=== PATIENT | male | born 1970 | race Caucasian/White ===

== ENCOUNTER 2020-03-05 12:24 | Inpatient (IN) | payer OTHER, SELFPAY ==
[2020-03-05] VITALS (40 sets, daily range): BP systolic 115–128; BP diastolic 79–92; PULSE 57–89; RESP 12–20; TEMP 36.7–37.3; O2SAT 96–100; BMI 26.1
--- NOTE | ~2020-03-05 | MR_ITS ---
EXAMINATION: MR brain/brain stem wo/w con EXAM DATE: 03/06/2020 13:06 INDICATION: vertigo and visual changes. TECHNIQUE: Magnetic resonance imaging (MRI) of the brain/brain stem obtained without contrast. Sagit renae T1, axial diffusion, gradient echo (T2*), T1, T2, FLAIR sequences obtained. Patient was then inj ected with 19 cc intravenous Multihance contrast. Axial and coronal postcontrast T1 weighted sequence s obtained. Correlation is made to head CT from 03/05/2020. FINDINGS: There is punctate focus of restricted diffusion in the left tectal plate, a punctate acute midbrain infarction. No other areas of restricted diffusion. There is a small to moderate size old le ft cerebellar infarction. There is no acute hemorrhage seen on the T2*, a hemosiderin sensitive seque nce. No intraparenchymal brain mass. The ventricles are normal in size. There are no extra-axial co llections. Flow voids are seen in the cerebral arteries on the T2-weighted sequences consistent with their expected patency. The orbits are unremarkable. Soft tissue is unremarkable. There are no a reas of abnormal enhancement on the postcontrast images. IMPRESSION: 1. Punctate acute left midbrain infarction. 2. Small to moderate-sized old left cerebellar infarction. Reviewed, dictated and finalized at location A. ATIONAL INTERPRETER
--- NOTE | ~2020-03-05 | CT_ITS ---
EXAMINATION: CT brain wo con DATE: 03/05/2020 15:04 INDICATION: Headache. Dizziness. TECHNIQUE: Computed tomography (CT) of the head was performed without intravenous contrast. The mA wa s adjusted according to patient size. Iterative reconstruction technique was employed. The dose-lengt h product was 605.33 mGy-cm. COMPARISON: Head CT 01/27/2009 FINDINGS: There is an old infarct involving left superior cerebellum. There is no intracranial hemorr doris, acute infarction, or abnormal intracranial mass lesion. The ventricles are normal in size. Ther e is mild mucosal thickening in the paranasal sinuses. The orbits are normal. The mastoid air cells a re normal. IMPRESSION: 1. Old infarct involving left superior cerebellum. Reviewed, dictated and finalized at location A. GN EDITOR
--- NOTE | ~2020-03-05 | CT_ITS ---
EXAMINATION: CTA brain carotid DATE: 03/05/2020 17:02 INDICATION: Headache. Dizziness. TECHNIQUE: Computed tomographic angiography (CTA) of the head was performed with 100 mL Omnipaque-350 intravenous contrast. CTA of the neck was performed with intravenous contrast. Automated exposure co ntrol and iterative reconstruction technique were employed. The dose-length product was 1202.78 mGy-c m. Maximum intensity projection and volume rendered 3D-reconstructions were created by the [employer] st on a separate workstation. COMPARISON: Head CT 03/05/2020 FINDINGS: HEAD CTA: There is an old infarct involving left superior cerebellum. There is no intracranial hemorr doris, acute infarction, or abnormal intracranial mass lesion. The ventricles are normal in size. Ther e is mild mucosal thickening in the paranasal sinuses. The orbits are normal. The mastoid air cells a re normal. The vertebral arteries are codominant. There is no significant stenosis of basilar artery or the posterior cerebral arteries. There is no significant stenosis of the intracranial internal car otid arteries or anterior or middle cerebral arteries. Anterior communicating artery is normal. The p osterior communicating arteries are normal. NECK CTA: There are no pathologically enlarged lymph nodes. There is a 9 mm nodule in left thyroid lo be, likely not clinically significant. There is no significant stenosis of the vertebral arteries. Th ere is mild plaque at the carotid bifurcations. There is 0% stenosis of the proximal right internal carotid artery relative to normal distal artery lumen diameter (NASCET criteria). There is 0% stenosi s of the proximal left internal carotid artery relative to normal distal artery lumen diameter. There is moderate thoracic spondylosis. IMPRESSION: 1. Old infarct involving left superior cerebellum. 2. No aneurysm or significant intracranial arterial stenosis. 3. 0% stenosis of the proximal internal carotid arteries relative to normal distal artery lumen diame ters (NASCET criteria). Reviewed, dictated and finalized at location A. L GRINDER IMPRESSION: 1. Old infarct involving left superior cerebellum. 2. No aneurysm or significant intracranial arterial stenosis. 3. 0% stenosis of the proximal internal carotid arteries relative to normal dis renae artery lumen diameters (NASCET criteria).
--- NOTE | 2020-03-05 12:48 | ECG_ITS ---
Measurements Intervals [place] Rate: 70 P: 65 SD: 185 QRS: 30 QRSD: 90 T: 43 QT: 390 QTc: 423 Interpretive Statements SINUS RHYTHM INCOMPLETE RIGHT BUNDLE BRANCH BLOCK BASELINE ARTIFACT- I, III, AVR, AVL, AVF BORDERLINE ECG Electronically Signed On 03-05-2020 13:10:03 PLACEMENT COORDINATOR by Rob Rivers D.O.
[2020-03-05 13:00] LABS: Basophils Absolute Auto 0.1 K/mm3 (0.0-0.1); Basophils Percent Auto 0.5 % (0.2-1.2); Eosinophils Percent Auto 0.3 % (0-4.4); Hematocrit 44.2 % (42.0-52.0); Immature Granulocyte Absolute 0.03 K/mm3 (0.00-0.031); Immature Granulocyte Percent A 0.3 % (0-0.5); Lymphocytes Absolute Auto 1.22 K/mm3 (0.9-3.2); Lymphocytes Percent Auto 12.1 % (18.3-44.2); Mean Corpuscular HGB Conc 36.2 g/dl (32-36); Mean Corpuscular Hemoglobin 31.7 pg (26-34); Mean Corpuscular Volume 87.7 fl (80-100); Mean Platelet Volume 12.8 fl (7.4-10.4); Monocytes Absolute Auto 0.6 K/mm3 (0.1-0.6); Neutrophils Absolute Auto 8.1 K/mm3 (1.3-6.7); Neutrophils Percent Auto 80.8 % (45.5-73.1); Platelet Count Result 203 k/mm3 (150-375); Red Blood Count 5.04 M/mm3 (4.6-6.20); Red Cell Distribution Width 11.7 % (11.5-14.5); White Blood Count 10.1 K/mm3 (4.5-10.0)
[2020-03-05 13:08] LABS: Anion Gap 7 mmol/L (8-16); Blood Urea Nitrogen 18 mg/dL (9-20); Carbon Dioxide 25 mmol/L (22-30); Chloride 106 mmol/L (98-107); Estimated CRCL calculation 135 ml/min; Estimated Glomerular Filt Rate > 60; Glucose 103 mg/dL (75-110); Potassium 3.9 mmol/L (3.4-5.0); Sodium 138 mmol/L (137-145)
[2020-03-05] MEDS: ONDANSETRON INJ 4 MG/2 ML VIAL IV PUSH (14:51)
[2020-03-05] MEDS: diazePAM INJ (*CRX) 10 MG/2 ML SYRINGE 5 MG IV PUSH (14:51)
--- NOTE | 2020-03-05 16:27 | ED.GENADULT ---
HPI - General Adult General Chief complaint: Dizziness <Kevin Tapia PA-C - Last Filed: 03/05/20 16:49> Stated complaint: double vision, wont stop moving, dizzy <eKvin Tapia PA-C - Last Filed: 03/05/20 16:49> Time Seen by Provider: 03/05/20 13:51 <Kevin Tapia PA-C - Last Filed: 03/05/20 16:49> Source: patient <ALIDA Spencer Last Filed: 03/05/20 16:49> Mode of arrival: ambulatory <ALIDA Spencer Last Filed: 03/05/20 16:49> Limitations: no limitations <Kevin Tapia PA-C - Last Filed: 03/05/20 16:49> History of Present Illness HPI narrative: Patient presents with chief complaint of dizziness, photophobia, double vision and 2 episodes of vomiting that began between 3:57 PM last night after being around a doing some strenuous labor and getting into his truck to the home. Patient states while riding home he vomited out of the window twice but has not vomited since despite continuing to feel nauseous. Patient reports he had an episode of vertigo 10 years ago but since has not had any of these symptoms. He denies any falls or head injuries. He denies recently starting any new medications. Patient states that when he opens his eyes he is extremely sensitive to light and it causes him to feel as if he will vomit. He states he also feels like everything is moving slowly around him. Patient denies prior history of heart attacks or strokes. He states that he takes finasteride for prostate issues as well as a baby aspirin just in an attempt to be prophylactic his has suffered a stroke. He denies any chest pain, shortness of breath, fever, chills, cough or localized headache. Patient denies any loss of range of motion or sensation to his upper or lower extremities, facial droop, speech issues, or issues ambulating. <Kevin Tapia PA-C - Last Filed: 03/05/20 16:49> Related Data Allergies/adverse reactions: Allergies Allergy/AdvReac Type Severity Reaction Status Date / Time No Known Allergies Allergy Verified 03/05/20 12:45 <Kevin Tapia PA-C - Last Filed: 03/05/20 16:49> Review of Systems Review of Systems: Narrative: CONSTITUTIONAL: Denies fever, chills, or sweats. EYES: Reports photophobia and visual changes denies redness, or discharge. ENT: Denies rhinorrhea, congestion, sore throat, or otalgia. CARDIOVASCULAR: Denies chest pain, palpitations, or edema. RESPIRATORY: Denies cough or dyspnea. GASTROINTESTINAL: Reports nausea and 2 episodes of vomiting denies abdominal pain or diarrhea. GENITOURINARY: Denies dysuria or hematuria. SKIN: Denies rash or itching. MUSCULOSKELETAL: Denies back pain, myalgia, or joint pain NEUROLOGIC: Reports dizziness PSYCHIATRIC: Denies anxiety or depression. <Kevin Tapia PA-C - Last Filed: 03/05/20 16:49> Exam Narrative: Exam Narrative: GENERAL: Well-appearing, well-nourished. HEAD: Normocephalic, atraumatic. EYES: PERRLA and EOMI. Left eye tracking slightly slower than right but nystagmus not appreciated. Patient refuses to do cerebellar function test due to being so photophobic. NECK: Supple. No adenopathy or masses. No vertebral tenderness or loss of ROM. CHEST: Clear to auscultation. No respiratory distress. No wheezes rales or rhonchi HEART: Regular rate and rhythm. Normal peripheral pulses. ABDOMEN: Patient not actively vomiting present. soft, nontender, nondistended, normal active bowel sounds. No bruises noted. EXTREMITIES: No acute changes in ROM. No edema. SKIN: Warm, dry, no rash. NEURO: No focal deficits. Alert and oriented x3. Patient declines gait testing do to dizziness and photophobia. PSYCH: Normal mood and affect. <Kevin Tapia PA-C - Last Filed: 03/05/20 16:49> Course LOG SCALER/PA Physician Supervision For this patient encounter, I reviewed the LOG SCALER or PA documentation, treatment plan, and medical decision making; and I had [id number] time with this patient. <Julienne Moser MD -
--- NOTE | 2020-03-05 19:00 | ADMGEN ---
This patient, Meng Bailey, was admitted to [facility]. Patient/family oriented to hospital policies and general routines including ID bracelet, bed and alarms, visiting hours, pain management, procedures, bathroom and other care routines, personal items, smoking policy, room service/diet, and visiting hours. Information on how to activate the Rapid Response Team has been discussed. Patient/Family are encouraged to report perceived risks to care and to ask questions if they do not understand what they are told or what they should do.
--- NOTE | 2020-03-05 22:00 | PM.IMHP ---
H&P: HPI History of Present Illness Date/Time: 03/06/20 22:00 Chief complaint: Dizziness, visual disturbances, nausea. Narrative: Meng Bailey is a pleasant 49-year-old male with enlarged prostate who presented to the emergency department earlier today from home with complaints of dizziness, visual disturbances, and nausea. Yesterday he spent the day cleaning out his mother's old storage unit and sometime later in the afternoon he had a sudden onset of vertigo and visual disturbances associated with nausea. Shortly thereafter he developed a headache behind his eyes with mild photophobia. He further qualifies his dizziness more so as vertigo, and reports that movement seems to make it worse. He also describes binocular diplopia which seems to be worse when looking towards the right. He has no visual deficits when looking out of one eye or the other. Brain CT done on arrival to the emergency department showed old infarct involving the left superior cerebellum, and with further questioning he does mention that approximately 10 years ago he had symptoms of left-sided weakness and slurred speech which was apparently attributed to an atypical migraine. He is otherwise healthy and has no history of hypertension, dyslipidemia, cardiac dysrhythmia, or hypercoagulable disorder. He does not take hormones and has no COVID symptoms. He denies aural fullness, tinnitus, palpitations, and history of cardiac dysrhythmia. No focal weakness, paresthesias, dysphagia, or dysarthria. Of note, he does take a baby aspirin daily as a preventative. Review of Systems Review of Systems: Narrative: Twelve systems were reviewed with pertinent positives and negatives as per HPI. No fever, chills, or sweats. No recent cold or flu symptoms. He denies chest pain, pleuritic pain, and shortness of breath. No cough. No palpitations or feelings of irregular heartbeat. Except as documented, all other systems were reviewed and are negative. [facility]LY [facility] Past Medical History Medical History (Updated 03/06/20 @ 00:12 by Phuong Lemus PA-C) Enlarged prostate Old cerebrovascular accident without late effect Brain CT performed on 03/05/2020 showed an old infarct involving the left superior cerebellum. Surgical History Surgical History (Updated 03/06/20 @ 00:08 by Phuong Lemus PA-C) History of removal of cyst History of vasectomy Family History Family History (Updated 03/06/20 @ 00:09 by Phuong Lemus PA-C) Mother Liver transplant recipient Social History Social History (Updated 03/06/20 @ 00:10 by Phuong Lemus PA-C) Social History: Surrogate decision maker: Sowmya Bailey, . Code status: Full code. Smoking status: Never smoker Alcohol intake: never Alcohol use details: Drinks perhaps 3 alcoholic beverages a year. Substance use: never Substance use type: does not use Living arrangements: with family Additional living arrangements comments: Patient resides in [place] with his . He has no biological children. 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 Spiritual care concerns: No Meds Home Medications and Allergies Home Medications Medication Instructions Recorded Confirmed Type finasteride 5 mg PO DAILY 03/05/20 03/05/20 History Allergies Allergy/AdvReac Type Severity Reaction Status Date / Time No Known Allergies Allergy Verified 03/05/20 12:45 Vital Signs Vital Signs - 24 hr 03/05/20 12:40 03/05/20 13:43 03/05/20 13:45 Temperature 98.5 F Pulse Rate 82 72 67 Respiratory Rate 18 16 15 Blood Pressure 123/86 Pulse Oximetry 100 97 98 03/05/20 14:00 03/05/20 14:01 03/05/20 14:15 Temperature Pulse Rate 63 63 70 Respiratory Rate 12 12 15 Blood Pressure 125/86 Pulse Oximetry 99 98 100 03/05/20 14:16 03/05/20 14:30 03/05/20 14:31 Temperature Pulse Rate 64 64 62 Res
[2020-03-05] MEDS: ACETAMINOPHEN 325 MG TABLET 650 MG PO (22:39)
[2020-03-05] MEDS: diazePAM (*CRX) 5 MG TABLET PO (22:40)
[2020-03-06] VITALS (11 sets, daily range): BP systolic 102–136; BP diastolic 71–91; PULSE 61–82; RESP 15–20; TEMP 36.7–37.1; O2SAT 98–100
--- NOTE | 2020-03-06 | ECHO_ITS ---
Patient Info Name: Meng Bailey Age: 49 years : 1970 Gender: Male Ht: 76 in Wt: 214 lbs BSA: 2.29 m2 HR: 70 bpm BP: 120 / 83 mmHg Heart Rhythm: Sinus Rhythm Technical Quality: Fair Exam Date: 03/06/2020 11:33 AM Exam Location: [facility] Patient Status: Inpatient Admit Date: 03/05/2020 Staff Ordering Physician: Phuong Lemus PA-C Lav Crewman: Matthew Rios RDCS Attending Provider: Jerome Jin MD Referring Physician: Mariah TATE; Exam Type: CA echo doppler w bubble study Study Info Indications 386.2 - Vertigo of Central Origin Complete two-dimensional, color flow and Doppler transthoracic echocardiogram is performed with agitated saline. Contrast/Agitated Saline Contrast/Ag. Saline: Agitated Saline Amount: 18.00 ml Administered By: Jamaal Dumont RN Existing IV Access: Yes History/Risk Factors Vertigo w/ blurred and double vision. Summary 1. Left ventricular chamber dimension is normal. 2. Left ventricular systolic function is normal, estimated at 60-65%. 3. There is mildly increased left ventricular wall thickness. 4. The left ventricular diastolic function is normal. 5. E/e' 5 is not elevated. Left Ventricle E/e' 5 is not elevated. Left ventricular chamber dimension is normal. Left ventricular systolic function is normal, estimated at 60-65%. There is mildly increased left ventricular wall thickness. The left ventricular diastolic function is normal. Right Ventricle Right ventricular chamber dimension is normal. Right ventricular systolic function is normal. Left Atria Left atrial chamber dimension is normal. Right Atria Right atrial chamber dimension is normal. Atrial Septum Agitated saline injection opacified right sided cardiac chambers with and without valsalva maneuver without any shunt to left sided cardiac chambers. Intact interatrial septum visualized by agitated saline imaging. Aortic Valve The aortic valve is probable trileaflet. There is no aortic valve stenosis. There is no aortic valve regurgitation. Pulmonic Valve There is no pulmonic regurgitation. Mitral Valve There is no mitral valve stenosis. There is no mitral valve regurgitation. Tricuspid Valve There is no tricuspid valve regurgitation. Pericardium/Pleural There is no pericardial effusion. Inferior Vena Cava Normal inferior vena cava with >50% collapse upon inspiration consistent with normal right atrial pressure, 5 mmHg. Aorta The aortic root size at the sinus of Valsalva is normal. Left Ventricular Outflow Tract Name Value Normal LVOT 2D LVOT Diameter 2.0 cm LVOT Doppler LVOT Peak Gradient 4 mmHg LVOT Mean Gradient 2 mmHg LVOT VTI 18 cm LVOT VTI/AV VTI Ratio 0.8 LVOT Stroke Volume 57 ml LVOT CO 4.0 l/min LVOT CI 1.7 l/min/m2 Mitral Valve
[2020-03-06 05:46] LABS: Alanine Aminotransferase 34 U/L (4-50); Alkaline Phosphatase 88 U/L (38-126); Aspartate Amino Transferase 36 U/L (17-59); Bilirubin,Total 1.5 mg/dL (0.2-1.3); Cholesterol 152 mg/dL (0-200); HDL Direct 38 mg/dL; Triglycerides 81 mg/dL (<150)
[2020-03-06 05:57] LABS: LDL Cholesterol Direct 89 mg/dL
--- NOTE | 2020-03-06 11:39 | WPDNEURCNPN ---
Consult date: 03/06/20 Time Seen: 11:30 HPI: Meng Bailey is a 49 year old male49 years old right-handed male has been admitted to [facility] through the emergency room with the complaints of dizziness with visual difficulties and nausea day before admission to the emergency room he spent the time cleaning out his mother's old storage unit and sometime later on he developed vertigo and visual difficulties with nausea and retro-orbital pain and headaches along with the mild photophobia. movement makes the vertigo severe and worse in addition he developed binocular diplopia, worse when looking to the right side. initial CT scan of the brain in the emergency room was not normal except old infarct involving the left superior cerebellum which happened about 10 years ago at that time he had the left-sided weakness slurred speech as well but it was attributed to atypical migraine. there is no history of COVID or any other symptomatology. Patient does have a history of enlarged prostate, is not a smoker drinks perhaps 3 drinks a yea. routine lab is normal except the total bilirubin being 1.5, CT revealing the old infarcts involving the left superior cerebellum the CTA did not document any kind of moderate or large vessel disease at this stage is receiving the diazepam with diagnosis of labyrinth iron dysfunction Review of Systems Review of Systems: All systems reviewed & are unremarkable except as noted in HPI and below PMFSH Past Medical History Medical History (Updated 03/06/20 @ 00:12 by Phuong Lemus PA-C) Enlarged prostate Old cerebrovascular accident without late effect Brain CT performed on 03/05/2020 showed an old infarct involving the left superior cerebellum. Surgical History Surgical History (Updated 03/06/20 @ 00:08 by Phuong Lemus PA-C) History of removal of cyst History of vasectomy Family History Family History Mother Liver transplant recipient Social History Social History Social History: Surrogate decision maker: Sowmya Bailey, . Code status: Full code. Smoking status: Never smoker Alcohol intake: never Alcohol use details: Drinks perhaps 3 alcoholic beverages a year. Substance use: never Substance use type: does not use Living arrangements: with family Additional living arrangements comments: Patient resides in [place] with his . He has no biological children. 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. Spiritual care concerns: No Meds Home Medications and Allergies Home Medications Medication Instructions Recorded Confirmed Type finasteride 5 mg PO DAILY 03/05/20 03/05/20 History Allergies Allergy/AdvReac Type Severity Reaction Status Date / Time No Known Allergies Allergy Verified 03/05/20 12:45 Vital Signs Vital Signs - 24 hr 03/05/20 12:40 03/05/20 13:43 03/05/20 13:45 Temperature 36.9 C Pulse Rate 82 72 67 Respiratory Rate 18 16 15 Blood Pressure 123/86 Pulse Oximetry 100 97 98 03/05/20 14:00 03/05/20 14:01 03/05/20 14:15 Temperature Pulse Rate 63 63 70 Respiratory Rate 12 12 15 Blood Pressure 125/86 Pulse Oximetry 99 98 100 03/05/20 14:16 03/05/20 14:30 03/05/20 14:31 Temperature Pulse Rate 64 64 62 Respiratory Rate 13 16 16 Blood Pressure 126/86 123/82 Pulse Oximetry 99 100 99 03/05/20 14:33 03/05/20 14:34 03/05/20 14:35 Temperature Pulse Rate 64 83 71 Respiratory Rate 16 Blood Pressure 124/84 121/85 124/84 Pulse Oximetry 100 03/05/20 14:36 03/05/20 14:37 03/05/20 14:39 Temperature Pulse Rate 82 72 89 Respiratory Rate 16 20 Blood Pressure 115/92 H 121/85 115/92 H Pulse Oximetry 100 100 03/05/20 14:40 03/05/20 14:45 03/05/20 14:46 Temperature Pulse Rate 66 60 61 Resp
--- NOTE | 2020-03-06 16:21 | PM.IMPN ---
Progress Note: A&P Assessment and Plan (1) Vertigo: Code(s): R42 - Dizziness and giddiness Status: Acute Assessment and Plan: possible vertigo pt awaiting MRI and CT head and echo for stroke work up. neurology consulted, will order thrombophilia panel. will order ASA and statin (2) Visual changes: Code(s): H53.9 - Unspecified visual disturbance Status: Acute Assessment and Plan: blurred vision both eyes, neurochecks to continue overnight. (3) Enlarged prostate: Code(s): N40.0 - Benign prostatic hyperplasia without lower urinary tract symptoms Status: Inactive Assessment and Plan: on medications for BPH (4) Old cerebrovascular accident without late effect: Code(s): Z86.73 - Personal history of transient ischemic attack (TIA), and cerebral infarction without residual deficits Status: Acute Assessment and Plan: 10 years ago. Subjective Date/time seen: 03/06/20 16:21 Interval history: 49-year-old male with enlarged prostate who presented to the emergency department earlier today from home with complaints of dizziness, visual disturbances, and nausea. very fit healthy man, complains of blurred vision dizziness and nausea. Ct head shows old infarct. Mri head shows acute infarct and old infarct. Talked to she has many questions, will order thrombophilia screen. Review of Systems Review of Systems: ROS unobtainable: Yes other (blurred vision ) Exam Narrative: Exam Narrative: General: Well-developed male HEENT: Normocephalic. Neck: Supple. Respiratory: Lungs are clear to auscultation bilaterally. Cardiovascular: Regular rate and rhythm with S1-S2. No murmur, rub, or gallop. Gastrointestinal: Abdomen is soft, nontender, and nondistended with positive bowel sounds. Skin: Warm and dry. Extremities: No cyanosis, clubbing, or edema. Neurological: Alert and oriented x4. Cranial nerves 2-12 are grossly intact. Speech is clear. No facial asymmetry. No pronator drift. Strength 5/5 in upper and lower extremities. vision blurred. Psychiatric: Pleasant and cooperative with normal mood and affect. Judgment and insight intact. Objective Data Vital Signs Vital Signs: Vital Signs - 24 hr 03/05/20 16:23 03/05/20 16:53 03/05/20 17:00 Temperature Pulse Rate 62 64 64 Respiratory Rate 12 12 14 Blood Pressure Pulse Oximetry 99 98 98 03/05/20 17:01 03/05/20 17:15 03/05/20 17:16 Temperature Pulse Rate 60 64 62 Respiratory Rate 12 14 14 Blood Pressure 120/81 118/80 Pulse Oximetry 98 97 97 03/05/20 17:31 03/05/20 17:55 03/05/20 18:00 Temperature Pulse Rate 64 64 65 Respiratory Rate 12 12 14 Blood Pressure 126/89 Pulse Oximetry 97 98 99 03/05/20 18:01 03/05/20 18:15 03/05/20 18:16 Temperature Pulse Rate 67 62 64 Respiratory Rate 20 20 20 Blood Pressure 121/84 126/88 Pulse Oximetry 99 97 96 03/05/20 18:17 03/05/20 18:35 03/05/20 18:47 Temperature Pulse Rate 64 80 63 Respiratory Rate 12 14 18 Blood Pressure 122/89 Pulse Oximetry 97 99 98 03/05/20 19:00 03/05/20 20:00 03/05/20 22:00 Temperature 37.3 C 36.7 C Pulse Rate 62 62 73 Respiratory Rate 16 16 16 Blood Pressure 128/79 127/85 Pulse Oximetry 100 100 100 03/06/20 00:00 03/06/20 04:00 03/06/20 05:15 Temperature Pulse Rate 63 61 67 Respiratory Rate Blood Pressure 120/83 Pulse Oximetry 100 03/06/20 05:20 03/06/20 05:22 03/06/20 06:00 Temperature 36.7 C Pulse Rate 82 72 67 Respiratory Rate 18 Blood Pressure 118/91 H 102/91 H 120/83 Pulse Oximetry 100 100 100 03/06/20 08:00 03/06/20 12:00 Temperature 36.8 C 36.7 C Pulse Rate 72 70 Respiratory Rate 15 15 Blood Pressure 113/71 126/84 Pulse Oximetry 98 100 Intake/Output Intake/Output: Intake & Output 03/03/20 03/04/20 03/05/20 03/06/20 23:59 23:59 23:59 23:59 Intake Total 480 Balance 480 Meds/Results Medications: Active Medi
--- NOTE | 2020-03-06 17:30 | PC.NURSE ---
Pt report received from Anali Blanc RN. Pt resting in bed with lights off. Does not complain of pain at this time. VSS. Will continue to monitor and address needs as they arise.
[2020-03-07] VITALS: PULSE 56
[2020-03-07 04:00] VITALS: PULSE 68
[2020-03-07 06:00] VITALS: BP 120/87; PULSE 64; RESP 20; TEMP 36.5; O2SAT 100
[2020-03-07 08:00] VITALS: BP 104/65; PULSE 88; RESP 22; TEMP 35.7; O2SAT 99
[2020-03-07] MEDS: FINASTERIDE 5 MG TABLET PO (10:15)
[2020-03-07] MEDS: ASPIRIN 325 MG TABLET PO (10:15)
[2020-03-07] MEDS: ATORVASTATIN 10 MG TABLET PO (10:16)
--- NOTE | 2020-03-07 13:55 | PM.DS ---
DS: Admitting Diagnosis Admitting Diagnosis Admitting Diagnosis: R/O acute infarct-dizziness and photophobia HOSPITAL COURSE: 49-year-old male with enlarged prostate who presented to the emergency department earlier today from home with complaints of dizziness, visual disturbances, and nausea. very fit healthy man, complains of blurred vision dizziness and nausea. Ct head shows old infarct. Mri head shows acute infarct and old infarct. Talked to she has many questions, will order thrombophilia screen. Pt seen by neurology. Watched in hospital. Main deficit is blurred vision. Discharged 03/07/2020. DS: Discharge Diagnosis Discharge Diagnosis (1) Vertigo: Code(s): R42 - Dizziness and giddiness Status: Acute Assessment and Plan: Pt awaiting MRI and CT head and echo for stroke work up. Neurology consulted, thrombophilia panel ordered. ASA and statin ordered. (2) Visual changes: Code(s): H53.9 - Unspecified visual disturbance Status: Acute Assessment and Plan: Blurred vision both eyes, neurochecks to continue overnight. (3) Enlarged prostate: Code(s): N40.0 - Benign prostatic hyperplasia without lower urinary tract symptoms Status: Inactive Assessment and Plan: on medications for BPH (4) Old cerebrovascular accident without late effect: Code(s): Z86.73 - Personal history of transient ischemic attack (TIA), and cerebral infarction without residual deficits Status: Acute Assessment and Plan: 10 years ago. DS: Summary Time Spent with Patient Time attestation: Total time spent providing and/or coordinating discharge services:40 minutes on day of dischrage Exam Narrative: Exam Narrative: General: Well-developed male HEENT: Normocephalic. Neck: Supple. Respiratory: Lungs are clear to auscultation bilaterally. Cardiovascular: Regular rate and rhythm with S1-S2. No murmur, rub, or gallop. Gastrointestinal: Abdomen is soft, nontender, and nondistended with positive bowel sounds. Skin: Warm and dry. Extremities: No cyanosis, clubbing, or edema. Neurological: Alert and oriented x4. Cranial nerves 2-12 are grossly intact. Speech is clear. No facial asymmetry. Strength 5/5 in upper and lower extremities. Vision blurred. no nystagmus seen. Psychiatric: Pleasant and cooperative with normal mood and affect. Judgment and insight intact. DS: Data Data Completed and Pending Labs on day of discharge: Labs from last 24 hours 03/06/20 19:13 Protein C Activity Pending Free Protein S Antigen Pending Antithrombin III Activ Pending Factor V Leiden Mutat Pending Factor V [place] HR2 Pending Thrombosis Interpret Pending Prothrombin [id number] Mut Pending Discharge Plan Discharge Attending physician on discharge: Alaina Rudd Consulting providers: Charles Wall ; Eliseo Rock ; Kevin Tapia ; Sergio Carr ; Phuong Lemus ; Rob Rivers ; Nolan Conti V. Discharging Clinician: Alaina Rudd Anticipated Discharge Date/Time: 03/07/20 13:51 Patient Disposition: Home, Self-Care Activity: as tolerated Diet: heart healthy Discharge Instructions: Follow up with OCCUPATIONAL ANALYST in 1-2 weeks time Follow up with DR Rock neurology in 2 weeks time Patching eye to rest eye, alter the patch Off work for 2 weeks No driving for 1 month No strenuous exercise for 2 weeks Patient Instructions: Antibiotic Form, Ischemic Stroke (DC) Stand Alone Forms: General Discharge Information Follow-up/Referrals: Eliseo Rock MD [Physician] - (in 2 weeks time for thrombophilia screen results and eye check ) Charles Wall DO [Physician] - Discharge Medications: New aspirin 325 mg Tablet 325 mg PO DAILY@0800 Qty: 90 RF: 0 atorvastatin 10 mg Tablet 10 mg PO DAILY Qty: 90 RF: 0 Continued finasteride 5 mg tablet 5 mg PO DAILY RF: 0 Date of admission: 03/06/20 13:58 Primary
--- NOTE | 2020-03-07 15:36 | WPDNEUROPN ---
Progress Note: A&P Assessment and Plan (1) Old cerebrovascular accident without late effect: Code(s): Z86.73 - Personal history of transient ischemic attack (TIA), and cerebral infarction without residual deficits Status: Acute (2) Vertigo: Code(s): R42 - Dizziness and giddiness Status: Acute (3) Dizziness: Code(s): R42 - Dizziness and giddiness Status: Acute (4) Visual changes: Code(s): H53.9 - Unspecified visual disturbance Status: Acute Additional Plan at this stage patient is stable. He wants to go home. All his questions were answered he will follow in the office for all these results he will not be driving he has specific question how long to continue the aspirin on this dosage was advised to continue at least for 1 month and on subsequent visit we can adjust no large vessels are involved Review of Systems Review of Systems: All systems reviewed & are unremarkable except as noted in HPI and below Exam Narrative: Exam Narrative: which revealed him to be awake alert and cooperative keeping his eyes closed because of the blurriness of the vision which was definitely more obvious to him when he open his left eye and kept the right eye close fzikue-ek-cbes-to-finger intact no drift of 1 or other upper extremity against gravity with eyes closed motor examination symmetrical so as the deep tendon reflexes and the plantar responses downgoing there was no evidence of cerebellar dysfunction gross at this particular time Objective Data Vital Signs Vital Signs: Vital Signs - 24 hr 03/06/20 16:00 03/06/20 20:00 03/06/20 22:00 Temperature 37.1 C 37.0 C Pulse Rate 63 67 69 Respiratory Rate 16 20 16 Blood Pressure 136/85 114/78 Pulse Oximetry 100 100 99 03/07/20 00:00 03/07/20 04:00 03/07/20 06:00 Temperature 36.5 C Pulse Rate 56 L 68 64 Respiratory Rate 20 Blood Pressure 120/87 Pulse Oximetry 100 03/07/20 08:00 Temperature 35.7 C L Pulse Rate 88 Respiratory Rate 22 H Blood Pressure 104/65 Pulse Oximetry 99 Intake/Output Intake/Output: Intake & Output 03/04/20 03/05/20 03/06/20 03/07/20 23:59 23:59 23:59 23:59 Intake Total 720 Balance 720 Meds/Results Medications: Active Medications Generic Name Dose Route Start Last Admin Trade Name Freq PRN Reason Stop Dose Admin Acetaminophen 650 mg 03/05/20 22:13 03/05/20 22:39 Acetaminophen 325 Mg Tablet PO 650 mg Q6H PRN Administration Mild Pain (1-3) or Fever Aspirin 325 mg 03/07/20 08:00 03/07/20 10:15 Aspirin 325 Mg Tablet PO 325 mg DAILY@0800 JD Administration Atorvastatin Calcium 10 mg 03/07/20 09:00 03/07/20 10:16 Atorvastatin 10 Mg Tablet PO 10 mg DAILY JD Administration Finasteride 5 mg 03/07/20 09:00 03/07/20 10:15 Finasteride 5 Mg Tablet PO 5 mg DAILY JD Administration Ondansetron HCl 4 mg 03/05/20 22:13 Ondansetron Inj 4 Mg/2 Ml Vial IV PUSH Q6H PRN Nausea And Vomiting Radiology Results: ITS Impressions Head CT 03/05/20 15:09 IMPRESSION: 1. Old infarct involving left superior cerebellum. Head/Neck CTA 03/05/20 17:03 IMPRESSION: 1. Old infarct involving left superior cerebellum. 2. No aneurysm or significant intracranial arterial stenosis. 3. 0% stenosis of the proximal internal carotid arteries relative to normal distal artery lumen diameters (NASCET criteria). Brain MRI 03/06/20 13:16 IMPRESSION: 1. Punctate acute left midbrain infarction. 2. Small to moderate-sized old left cerebellar infarction. Quality VTE Prophylaxis VTE prophylaxis: mechanical ordered
[2020-03-20 14:46] LABS: Antithrombin III Activity 81 % normal (80-135); Protein S Antigen, Free 67 % normal (57-171)
== END 2020-03-07 16:12 | disposition home or self-care (01) | DRG 66 ==
LOC: ANHED 16:49 → ANHCPC 18:33
PROVIDERS: Physician Assistant; Admitting Provider Internal Medicine; Emergency Provider Emergency Medicine; Visit Provider Family Medicine
DX: I63.9 Cerebral infarction, unspecified (principal); H53.8 Other visual disturbances; R42 Dizziness and giddiness; R11.0 Nausea; N40.0 Benign prostatic hyperplasia without lower urinary tract symptoms; Z79.899 Other long term (current) drug therapy; Z86.73 Personal history of transient ischemic attack (TIA), and cerebral infarction without residual deficits
CPT/HCPCS: 36415; 70450; 70496; 70498; 70553; 80048; 80061; 80076; 81240; 81241; 85025; 85301; 85303; 85306; 93005; 93306; 96374; 96375; 99285; A9270; A9577; G0378; J2405; J3360; Q9967

== ENCOUNTER 2020-08-15 08:19 | Outpatient (CLI) | payer OTHER, SELFPAY ==
--- NOTE | ~2020-08-15 | XR_ITS ---
EXAMINATION: XR UGI w barium swallow DATE: 08/15/2020 09:20 INDICATION: One month of epigastric pain TECHNIQUE: The patient drank thick barium, gas-producing crystals, and thin barium. Fluoroscopic spot radiographs of the hypopharynx, esophagus, stomach and proximal small bowel were obtained. Fluorosco py exposure time was 1.8 minutes. Total DAP was 13.241 mGycm^2 COMPARISON: None. FINDINGS: The pharynx is symmetric and without evidence of mass lesion or mucosal irregularity. The esophagus i s normal without mass or stricture. Esophageal motility is normal. There is no hiatal hernia. There w as no gastroesophageal reflux with provocative maneuvers. The stomach and proximal small bowel are no rmal. IMPRESSION: 1. Normal esophagram and upper GI study. Reviewed, dictated and finalized at location A.
== END 2020-08-15 08:20 | disposition home or self-care (01) ==
PROVIDERS: PCP Internal Medicine; Visit Provider Internal Medicine
DX: R10.13 Epigastric pain (principal)
CPT/HCPCS: 74240

== ENCOUNTER 2020-11-01 14:00 | Outpatient (CLI) | payer OTHER, SELFPAY ==
--- NOTE | ~2020-11-01 | XR_ITS ---
XR hip LT min 2V DATE: 11/01/2020 14:21 INDICATION: Left groin pain. No injury. TECHNIQUE: AP and lateral views COMPARISON: None FINDINGS: There is moderate joint space narrowing consistent with left hip osteoarthritis. There are some benign lucencies of the lateral femoral neck with thin sclerotic margins, likely degenerative cy sts. No fracture or dislocation, avascular necrosis or any suspicious bone destruction is evident. The sacroiliac joints and symphysis appear normally aligned. IMPRESSION: Left hip osteoarthritis Reviewed, dictated and finalized at location B. IMPRESSION: Left hip osteoarthritis
== END 2020-11-01 14:01 | disposition home or self-care (01) ==
LOC: ANHIMG 14:02
PROVIDERS: PCP Internal Medicine; Visit Provider Internal Medicine
DX: M16.12 Unilateral primary osteoarthritis, left hip (principal)
CPT/HCPCS: 73502

== ENCOUNTER 2020-11-29 15:01 | Outpatient (CLI) | payer OTHER, SELFPAY ==
--- NOTE | ~2020-11-29 | MR_ITS ---
EXAMINATION: MR hip LT wo con DATE: 11/29/2020 16:01 INDICATION: Left hip pain TECHNIQUE: Magnetic resonance imaging (MRI) of the left hip was performed without intravenous contra st. Sequences included full-field axial PD-weighted FS FSE and T1-weighted FSE, coronal of the pelvis with PD-weighted FS FSE, small field of view of the left hip with axial PD-weighted FS FSE, sagitta l PD-weighted FS FSE and coronal PD weighted FS FSE. Additional radial T1-weighted FGR oriented ortho gonal to the acetabular rim were obtained for evaluation of the labrum. COMPARISON: None FINDINGS: Bones/labrum/cartilage: Alignment is normal. No fracture, avascular necrosis or pathologic marrow replacing process. Mild de creased anterosuperior left femoral head neck offset with subcortical cystic changes at the femoral h ead neck junction which can be seen with femoral acetabular impingement. There is mild degenerative t earing of the posterior superior left acetabular labrum with small shallow cleft at the chondral labr al junction at the 12:00-12:30 position. Mild partial-thickness chondral ulceration along the anteros uperior rim of the left acetabulum. Additional partial thickness cartilage loss at the posterior aspe ct of the left femoral head and acetabulum. No degenerative subchondral changes. Severe spondylosis a t the lumbosacral junction. Fluid: Symmetric physiologic amount of fluid within both hip joints. Soft tissues: Normal and symmetric muscle bulk and signal in the pelvis and visualized proximal thighs. Mild tendin opathy with very small partial tear at the left ischial tuberosity origin of the common tendon of the left biceps femoris and semitendinosus tendon. The proximal right hamstring tendons are normal. The iliopsoas and gluteal tendons are normal. Limited evaluation of visceral organs of the pelvis is unre markable. No pathologically enlarged pelvic/inguinal lymphadenopathy. IMPRESSION: 1. Mild left hip osteoarthritis with superolateral posterolateral labral tear/degeneration. 2. Decreased left femoral head neck offset with subcortical cystic change at the anterosuperior femor al head neck junction which could be seen with cam-type femoral acetabular impingement. 3. Mild tendinopathy of the proximal left hamstring tendons with very small partial thickness tear at the origin of the common tendon of the left biceps femoris and semitendinosus tendon. Reviewed, dictated and finalized at location B. IMPRESSION: 1. Mild left hip osteoarthritis with superolateral posterolateral labral tear/d egeneration. 2. Decreased left femoral head neck offset with subcortical cystic change at th e anterosuperior femoral head neck junction which could be seen with cam-type f emoral acetabular impingement. 3. Mild tendinopathy of the proximal left hamstring tendons with very small par tial thickness tear at the origin of the common tendon of the left biceps femor is and semitendinosus tendon.
== END 2020-11-29 15:02 | disposition home or self-care (01) ==
LOC: ANHIMG 15:02
PROVIDERS: PCP Internal Medicine; Visit Provider Internal Medicine
DX: M16.12 Unilateral primary osteoarthritis, left hip (principal)
CPT/HCPCS: 73721

== ENCOUNTER → 2021-08-29 11:32 | Outpatient (CLI) | payer OTHER, SELFPAY ==
--- NOTE | ~2021-08-29 | XR_ITS ---
XR_CERV2-3V_CR DATE: 08/29/2021 12:00 INDICATION: Neck pain TECHNIQUE: AP, open-mouth, lateral views COMPARISON: None FINDINGS: C1 and C2 are normally aligned and the odontoid process is intact. No fracture or dislocation or locked facet or prevertebral soft tissue swelling. There is mildly severe degenerative disease at C5-6 and moderate degenerative disc disease at C6-7. T here is uncovertebral joint spurring at C5-6 and C6-7. There is levoscoliosis of the upper thoracic spine with compensatory dextroscoliosis of the cervical spine. IMPRESSION: Cervical spondylosis Reviewed, dictated and finalized at Location A. Reviewed, dictated and finalized at location A. IMPRESSION: Cervical spondylosis
== END ==
PROVIDERS: PCP Internal Medicine; Visit Provider Nurse Practitioner
DX: M47.812 Spondylosis without myelopathy or radiculopathy, cervical region (principal)
CPT/HCPCS: 72040

== ENCOUNTER 2021-11-26 12:16 | Day surgery (SDC) | payer OTHER, SELFPAY ==
[2021-11-11 08:01] VITALS: BMI 26.8
--- NOTE | 2021-11-25 14:08 | WPDANESEPPF ---
Anes - Initial Pre Proc Eval Procedure: Operation Date: 11/26/21 13:30 Proposed Procedures p Screening Colonoscopy - Matthew De León MD Date/Time: 11/25/21 14:08 Surgeon: Matthew De León MD Pre Op Diagnosis: neoplasm screening Patient Data Age: 51 Gender: M Height: 1.93 m Weight: 100 kg Allergies Allergy/AdvReac Type Severity Reaction Status Date / Time No Known Allergies Allergy Verified 08/29/21 10:53 Home Medications Medication Instructions Recorded Confirmed Type finasteride 5 mg tablet 5 mg PO DAILY 03/05/20 08/15/21 History chlorzoxazone 500 mg tablet 500 mg PO TID PRN muscle spasm #90 08/15/21 08/15/21 Rx tabs sodium sul 1.479 gram-potas ch See Rx Instructions PO PER PKG DIR 09/09/21 Rx 0.188 gram-magnes sul 0.225 gram #24 tabs tablet (Sutab) Patient hx anesthesia problems: none Family hx anesthesia problems: none Results Review: All pre-operative results and documents have been reviewed as part of the pre-operative evaluation. [facility] Past Medical History Medical History Enlarged prostate Old cerebrovascular accident without late effect Brain CT performed on 03/05/2020 showed an old infarct involving the left superior cerebellum. Stroke Surgical History Surgical History History of removal of cyst 1970s History of vasectomy Family History Family History Mother Liver transplant recipient Other Diabetes mellitus Family history of TIAs Family history of arthritis Family history of stroke Social History Social History Social History: Surrogate decision maker: Sowmya Bailey Code status: Full code. Smoking status: Never smoker Alcohol intake: unknown Alcohol use details: Drinks perhaps 3-4 alcoholic beverages a year. Substance use: never Substance use type: does not use Living arrangements: with family Additional living arrangements comments: Patient resides in [place] with his . He has no biological children. 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 Gender identity (if verbalized by the patient): Male Spiritual care concerns: No Anes - Eval Final PreProcedure Day of Procedure 11/25/21 14:08 Patient weight: overweight Heart: regular rate and rhythm Lungs: clear to auscultation Airway: Mallampati scale class II Neurological: alert and oriented Last oral intake: >/= 8 hours ASA classification: III Emergent: no Anesthetic plan: proceed Anesthesia type and monitoring: general GIVS and standard monitoring Results Review: All pre-operative results and documents have been reviewed as part of the pre-operative evaluation. Informed Consent: The patient's anesthetic plan and its attendant risks and benefits were discussed with the patient/family/POA. Questions were solicited and answers provided to the satisfaction of the patient/family/POA.
--- NOTE | 2021-11-25 16:12 | P.HP_ITS ---
History of Present Illness History of Present Illness Consent: Risks, benefits, and alternatives have been discussed and questions answered. Patient agrees to proceed with procedure. Chief complaint: neoplasm screening Narrative: Meng Bailey is a 51 year old male Referred for colon cancer Review of Systems Review of Systems: All systems reviewed & are unremarkable except as noted in HPI and below PMFSH Past Medical History Medical History Enlarged prostate Old cerebrovascular accident without late effect Brain CT performed on 03/05/2020 showed an old infarct involving the left superior cerebellum. Stroke Surgical History Surgical History History of removal of cyst 1970s History of vasectomy Family History Family History Mother Liver transplant recipient Other Diabetes mellitus Family history of TIAs Family history of arthritis Family history of stroke Social History Social History Social History: Surrogate decision maker: Sowmya Bailey Code status: Full code. Smoking status: Never smoker Alcohol intake: unknown Alcohol use details: Drinks perhaps 3-4 alcoholic beverages a year. Substance use: never Substance use type: does not use Living arrangements: with family Additional living arrangements comments: Patient resides in [place] with his . He has no biological children. 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 Gender identity (if verbalized by the patient): Male Spiritual care concerns: No Meds Home Medications and Allergies Home Medications Medication Instructions Recorded Confirmed Type finasteride 5 mg tablet 5 mg PO DAILY 03/05/20 08/15/21 History chlorzoxazone 500 mg tablet 500 mg PO TID PRN muscle spasm #90 08/15/21 08/15/21 Rx tabs sodium sul 1.479 gram-potas ch See Rx Instructions PO PER PKG DIR 09/09/21 Rx 0.188 gram-magnes sul 0.225 gram #24 tabs tablet (Sutab) Allergies Allergy/AdvReac Type Severity Reaction Status Date / Time No Known Allergies Allergy Verified 08/29/21 10:53 Exam Resp: Auscultation: clear to auscultation bilaterally Cardio: Rate: regular rate Rhythm: regular rhythm GI: GI Palp: Yes Soft to palpation and No Tenderness to palpation present (GI) Assessment and Plan Assessment and plan (1) Colon cancer screening: Code(s): Z12.11 - Encounter for screening for malignant neoplasm of colon Status: Acute Assessment and Plan: Colonoscopy with possible biopsy or polypectomy or cautery or injection of substances.
[2021-11-26 12:45] VITALS: BP 119/87; PULSE 78; RESP 18; TEMP 37; O2SAT 100
[2021-11-26 13:10] VITALS: BMI 27.1
[2021-11-26] MEDS: LACTATED RINGERS 1,000 ML 150 ML IV CONT (13:10)
--- NOTE | 2021-11-26 13:35 | SUR.OPER ---
SIMETHICONE INJECTED FLUSH IN COLON. DILUTED IN STERILE WATER
[2021-11-26 13:37] VITALS: BP 111/78; PULSE 70; RESP 16; O2SAT 96
[2021-11-26 13:47] VITALS: BP 108/78; PULSE 72; RESP 16; O2SAT 97
[2021-11-26 13:57] VITALS: BP 117/89; PULSE 74; RESP 16
--- NOTE | 2021-11-26 14:04 | WPDANESPN ---
Anes - Prog Note Post-Op Date/Time: 11/26/21 14:04 Cardiovascular status: normal Respiratory status: normal Airway patency: baseline Mental status: baseline Post-Op hydration status: normal Vital Signs: Last Vital Signs Temp 37.0 C 11/26/21 12:45 Pulse 74 11/26/21 13:57 Resp 16 11/26/21 13:57 BP 117/89 11/26/21 13:57 Pulse Ox 97 11/26/21 13:47 O2 Del Method Room Air 11/26/21 13:57 Pain Score (VAS): 0 I/O: Intake & Output 11/25/21 11/26/21 11/26/21 23:59 07:59 15:59 Intake Total 300 Balance 300 Post-procedural complaints: none Patient Feedback: Patient satisfied with anesthetic care. Other Findings: Patient vital signs back to baseline. Patient denies nausea and vomiting. Patient's pain under control. Patient OK for discharge.
[2021-11-26] MEDS: SIMETHICONE ORAL SUSPENSION 20 MG/0.3 ML 30 ML BOTTLE 0.6 ML IRRIGATION (15:02)
== END 2021-11-26 14:08 | disposition home or self-care (01) ==
PROVIDERS: PCP Internal Medicine; Visit Provider Internal Medicine Gastroenterology
PROC: 0DJD8ZZ Inspection of Lower Intestinal Tract, Via Natural or Artificial Opening Endoscopic (ICD-10-PCS; CPT 45378; principal; 2021-11-26 13:30)
DX: Z12.11 Encounter for screening for malignant neoplasm of colon (principal)
CPT/HCPCS: 45378

== ENCOUNTER → 2022-08-28 07:07 | Outpatient (CLI) | payer OTHER, SELFPAY ==
--- NOTE | ~2022-08-28 | XR_ITS ---
Cervical Spine: AP, lateral, open-mouth views Clinical History: Pain COMPARISON: 08/29/2021 Findings: The normal lordotic curve is maintained. The vertebral bodies and posterior elements appea r intact. There is moderate degenerative disc narrowing at C5-C6. Pre-vertebral soft tissues are unre markable. Impression: Moderate degenerative disc narrowing at C5-C6. Reviewed, dictated and finalized at [facility]. Impression: Moderate degenerative disc narrowing at C5-C6.
== END ==
PROVIDERS: PCP Family Medicine; Visit Provider Nurse Practitioner Family
DX: M54.2 Cervicalgia (principal)
CPT/HCPCS: 72040

== ENCOUNTER 2023-01-02 08:18 | Outpatient (CLI) | payer OTHER, SELFPAY ==
--- NOTE | ~2023-01-02 | MR_ITS ---
EXAMINATION: MR cervical spine wo con DATE: 01/02/2023 09:16 INDICATION: Neck pain. TECHNIQUE: Magnetic resonance imaging (MRI) of the cervical spine was performed without intravenous c ontrast. COMPARISON: Cervical spine radiographs 08/28/2022 FINDINGS: Bone alignment is normal. Vertebral body heights are normal. There is moderately decreased disc height at C5-C6 and mildly decreased disc height at C6-C7. The spinal cord signal intensity is n ormal. The following disc levels are specifically discussed: C2-C3: There is a central protrusion. There is no uncovertebral joint osteoarthritis. There is mild b ilateral facet joint osteoarthritis. There is no neural foraminal stenosis. There is mild central can al stenosis. C3-C4: The disc is bulging and has an annular fissure. There is moderate right uncovertebral joint os teoarthritis. There is moderate bilateral facet joint osteoarthritis. There is mild right neural fora tamy stenosis. There is mild central canal stenosis. C4-C5: There is a central extrusion. There is moderate right and mild left uncovertebral joint osteoa rthritis. There is moderate right and mild left facet joint osteoarthritis. There is moderate right a nd mild left neural foraminal stenosis. There is mild central canal stenosis. C5-C6: The disc is bulging. There is severe right and moderate left uncovertebral joint osteoarthriti s. There is mild bilateral facet joint osteoarthritis. There is moderate right and mild left neural f oraminal stenosis. There is mild central canal stenosis with ventral indentation of spinal cord. C6-C7: There is a central extrusion. There is severe bilateral uncovertebral joint osteoarthritis. Th ere is moderate bilateral facet joint osteoarthritis. There is moderate bilateral neural foraminal st enosis. There is mild central canal stenosis. C7-T1: The disc does not extend beyond the endplate margin. There is no uncovertebral joint osteoarth ritis. There is severe right and moderate left facet joint osteoarthritis. There is mild bilateral ne ural foraminal stenosis. There is no central canal stenosis. IMPRESSION: 1. Moderate cervical spondylosis. Reviewed, dictated and finalized at location E.
== END 2023-01-02 08:19 | disposition home or self-care (01) ==
PROVIDERS: PCP Family Medicine; Visit Provider Nurse Practitioner Family
DX: M47.892 Other spondylosis, cervical region (principal)
CPT/HCPCS: 72141

== ENCOUNTER 2023-05-10 11:55 | Outpatient (CLI) | payer OTHER, SELFPAY ==
--- NOTE | ~2023-05-10 | XR_ITS ---
EXAMINATION: XR lumbar spine 2-3V DATE: 05/10/2023 12:05 INDICATION: Low back pain TECHNIQUE: Anteroposterior and lateral views of the lumbar spine, and cone-down lateral view of the l umbosacral junction were obtained. COMPARISON: None. FINDINGS: Bone alignment is normal. There is no fracture. The vertebral body heights are maintained. There is moderate loss of intervertebral disc space height at L5-S1. There is mild facet joint osteoa rthritis of the lower lumbar spine. Small degenerative osteophytes project from the anterior endplate s of multiple vertebral bodies. IMPRESSION: 1. Mild lumbar spondylosis without acute findings. Reviewed, dictated and finalized at location L. [employer]
== END 2023-05-10 11:56 ==
LOC: MICIMG 11:58
PROVIDERS: PCP Nurse Practitioner Family; Visit Provider Nurse Practitioner Family
DX: M47.896 Other spondylosis, lumbar region (principal)
CPT/HCPCS: 72100

== ENCOUNTER 2023-09-24 15:43 | Outpatient (CLI) | payer OTHER, SELFPAY ==
--- NOTE | ~2023-09-24 | MR_ITS ---
EXAMINATION: MR lumbar spine wo con DATE: 09/24/2023 16:17 INDICATION: Low back pain, unspecified. TECHNIQUE: Magnetic resonance imaging (MRI) of the lumbar spine was performed without intravenous con trast. Sequences included sagittal T2-weighted FSE, sagittal T2-weighted FS FSE, sagittal T1-weighted FSE, and axial T2-weighted FSE. COMPARISON: Lumbar spine radiographs 05/10/2023 FINDINGS: There is 3 degrees dextrocurvature of lumbar spine. There is mild chronic anterior wedging of T12 vertebral body. There is mildly decreased disc height at L4-L5 and severely decreased disc hei ght at L5-S1. The distal spinal cord signal intensity is normal. The conus medullaris is at T12-L1. T he following disc levels are specifically discussed: L1-L2: The disc is bulging. There is mild bilateral facet joint osteoarthritis. There is mild bilater al neural foraminal stenosis. There is mild central canal stenosis. L2-L3: The disc is bulging. There is mild bilateral facet joint osteoarthritis. There is mild right a nd moderate left neural foraminal stenosis. There is mild central canal stenosis. L3-L4: The disc is bulging and has an annular fissure. There is moderate bilateral facet joint osteoa rthritis. There is mild bilateral neural foraminal stenosis. There is mild central canal stenosis. L4-L5: The disc is bulging and has an annular fissure. There is severe bilateral facet joint osteoart hritis. There is moderate bilateral neural foraminal stenosis. There is moderate central canal stenos is. L5-S1: The disc is bulging and has an annular fissure. There is mild bilateral facet joint osteoarthr itis. There is mild bilateral neural foraminal stenosis. There is no central canal stenosis. IMPRESSION: 1. Severe lower lumbar spondylosis. Reviewed, dictated and finalized at location E.
== END 2023-09-24 15:44 ==
LOC: MICIMG 15:44
PROVIDERS: PCP Nurse Practitioner Family; Visit Provider Nurse Practitioner Family
DX: M47.896 Other spondylosis, lumbar region (principal)
CPT/HCPCS: 72148

== ENCOUNTER 2024-07-26 15:58 | Outpatient (CLI) | payer OTHER, SELFPAY ==
--- NOTE | ~2024-07-26 | XR_ITS ---
HISTORY: M79.672 - Pain in left foot COMPARISON: None TECHNIQUE: 3 views of the left foot were performed FINDINGS: No acute fracture or dislocation is appreciated. Mild peripheral degenerative disease is noted. The base of the fifth metatarsal is intact. No calcaneal spur is noted. Ossification of the insertion of the Achilles tendon is noted. No significant soft tissue swelling is present. IMPRESSION: Degenerative disease without acute fracture. Reviewed, dictated and finalized at location A.
== END 2024-07-26 15:59 | disposition home or self-care (01) ==
LOC: MICIMG 16:00
PROVIDERS: PCP Nurse Practitioner Family; Visit Provider Nurse Practitioner Family
DX: M19.072 Primary osteoarthritis, left ankle and foot (principal)
CPT/HCPCS: 73630

== ENCOUNTER 2024-12-28 14:51 | Outpatient (CLI) | payer OTHER, SELFPAY ==
--- NOTE | ~2024-12-28 | XR_ITS ---
EXAMINATION: XR tibia fibula LT 2V, 12/28/2024 14:57 CDT HISTORY: M79.605 - Pain in left leg COMPARISON: No comparisons available. Findings: No acute fracture or malalignment. No significant degenerative changes. Soft tissues unremarkable. Impression: No acute fracture or malalignment. Reviewed, dictated and finalized at location P. Impression: No acute fracture or malalignment.
--- NOTE | ~2024-12-28 | XR_ITS ---
EXAMINATION: [id number], 12/28/2024 14:57 CDT HISTORY: M79.605 - Pain in left leg COMPARISON: No comparisons available. Findings: No acute fracture or malalignment. No significant degenerative changes. Soft tissues unremarkable. Impression: No acute fracture or malalignment. Reviewed, dictated and finalized at location P. Impression: No acute fracture or malalignment.
--- NOTE | ~2024-12-28 | XR_ITS ---
EXAMINATION: XR ankle LT min 3V, 12/28/2024 14:57 CDT HISTORY: M79.605 - Pain in left leg COMPARISON: No comparisons available. Findings: Remote corticated fractures of the lateral malleolus, no acute fracture identified No significant degenerative changes. Soft tissues unremarkable. Impression: No acute fracture or malalignment. Reviewed, dictated and finalized at location P. Impression: No acute fracture or malalignment.
== END 2024-12-28 14:52 | disposition home or self-care (01) ==
LOC: MICIMG 14:52
PROVIDERS: PCP Nurse Practitioner Family; Visit Provider Nurse Practitioner Family
DX: M79.605 Pain in left leg (principal); M25.572 Pain in left ankle and joints of left foot
CPT/HCPCS: 73590; 73610; 73630